=== PATIENT | male | born 2000 | race Two or more races ===

== ENCOUNTER 2021-06-28 14:52 | Emergency (ER) | payer MEDICAID, OTHER ==
[~2021-06-28] VITALS: Ht 167.6 cm; Wt 108.9 kg
[2021-06-28 16:58] VITALS: BP 142/89
[2021-06-28] MEDS ORDERED: TETANUS-DIPTH-ACEL PERTUSSIS 0.5ML SYR Tdap IM ONE (17:00)
== END 2021-06-28 17:26 | disposition home or self-care (01) ==
LOC: ER 14:52
DX: S71.152A Open bite, left thigh, initial encounter (principal); S71.132A Puncture wound without foreign body, left thigh, initial encounter; W54.0XXA Bitten by dog, initial encounter; Y93.89 Activity, other specified; Y92.89 Other specified places as the place of occurrence of the external cause; Y99.8 Other external cause status
CPT/HCPCS: 90471; 90715